=== PATIENT | female | born 1990 | race Caucasian/White ===

== ENCOUNTER 2017-02-28 18:17 | Emergency (ER) | payer MEDICAID ==
[2017-02-28] MEDS ORDERED: HYDROCODONE/APAP 7.5/325MG TABLET PO ONE (18:29)
--- NOTE | 2017-02-28 18:31 | Emergency Department Record ---
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 Patient reports that she takes [place] for her chronic pain symptoms, but is unable to get her prescription filled until tomorrow. Patient denies new injury, fevers, chills, or new pain resulting from her chronic hip region. MD Complaint: Joint pain Onset/Timin -: Days(s) Location: Left Radiation: Proximal Severity scale (1-10): 9 Quality: Aching Consistency: Constant Improves with: Rest Worsens with: Walking, Weight bearing - Related Data Home Medications Medication Instructions Recorded Confirmed Last Taken Hydrocodone/Acetaminophen [[place] 1 each PO QID 02/28/17 02/28/17 2 Days Ago 7.5-325 Tablet] ~02/26/17 Allergies Allergy/AdvReac Type Severity Reaction Status Date / Time amoxicillin [Amoxicillin] Allergy RASH Verified 02/28/17 18:28 cephalexin monohydrate Allergy RASH Verified 02/28/17 18:28 [From Keflex] diphenhydramine HCl Allergy RASH Verified 02/28/17 18:28 [From Benadryl] hydroxyzine HCl [From Atarax] Allergy HIVES Verified 02/28/17 18:28 moxifloxacin HCl Allergy RASH Verified 02/28/17 18:28 [From Avelox] sulfamethoxazole Allergy RASH Verified 02/28/17 18:28 [From Bactrim] trimethoprim [From Bactrim] Allergy RASH Verified 02/28/17 18:28 Travel Screening - Travel/Exposure Within Last 30 Days Have you traveled within the last 30 days?: No - Travel/Exposure Within Last Year Have you traveled outside the [place] in the last year?: No - Additonal Travel Details Have you been exposed to anyone with a communicable illness?: No - Travel Symptoms Symptom Screening: None Review of Systems Constitutional: Denies: Chills, Fever, Malaise, Night sweats Eyes: Denies: Eye discharge, Eye pain ENT: Denies: Congestion, Ear pain, Epistaxis Respiratory: Denies: Cough, Dyspnea Cardiovascular: Denies: Chest pain, Dyspnea on exertion Endocrine: Denies: Fatigue, Heat or cold intolerance Gastrointestinal: Denies: Abdominal pain, Constipation, Nausea, Vomiting Genitourinary: Denies: Incontinence, Retention Musculoskeletal: Reports: Arthralgia. Denies: Back pain, Gout, Joint swelling Skin: Denies: Bruising, Change in color Neurological: Denies: Abnormal gait, Confusion, Headache, Numbness Psychiatric: Denies: Anxiety Hematological/Lymphatic: Denies: Anemia, Blood Clots Past Medical History - SOCIAL HISTORY Smoking Status: Current every day smoker Alcohol Use: None Drug Use: None - RESPIRATORY Hx Respiratory Disorders: Yes Hx Bronchitis: Yes Hx Pneumonia: Yes - CARDIOVASCULAR Hx Cardio Disorders: Yes Hx Irregular Heartbeat: Yes Comment:: Tachycardia - NEURO Hx Neuro Disorders: Yes Hx Headaches: Yes (MIGRAINES) - GI Hx GI Disorders: Yes Hx Irritable Bowel: Yes - Hx Genitourinary Disorders: Yes Hx UTI: Yes Comment:: Polycystic ovarian disease - ENDOCRINE Hx Endocrine Disorders: Yes Hx Thyroid Disease: Yes Comment:: Cyst on Thyroid - MUSCULOSKELETAL Hx Musculoskeletal Disorders: Yes Comment:: Lipomas on back - PSYCH Hx Psych Problems: Yes Hx Anxiety: Yes Hx Depression: Yes Comment:: Bipolar; Borderline personality disorder - HEMATOLOGY/ONCOLOGY Hx Hematology/Oncology Disorders: No Family Medical History Any Significant Family History?: Yes Hx Anxiety: Mother Hx Cancer: Father, Grandparents Hx Depression: Mother Hx Diabetes: Mother Hx Heart Disease: Father, Grandparents Hx HTN: Grandparents Hx Resp Disorders: Grandparents Physical Exam - General General Appearance: Alert, Oriented x3, Cooperative, No acute distress Limitations: No limitations - Head Head exam: Atraumatic, Normocephalic, Normal inspection Head exam detail: negative: Abrasion, Contusion, Hernandez's sign, General tenderness, Hematoma, Laceration - Eye Eye exam: Normal appearance. negative: Conjunctival injection, Periorbital swelling, Periorbital tenderness, Scleral icterus - ENT Ear exam: negative: Auricular hematoma, Auricular trauma Nasal Exam: negative: Active bleeding, Discharge, Dried blood, Foreign body Mouth exam: negative: Drooling, Laceration, Muffled voice, Tongue elevation - Neck Neck exam: Normal inspection. negative: Meningismus, Tenderness - Respiratory Respiratory exam: Normal lung sounds bilaterally. negative: Respiratory distress, Rhonchi, Stridor, Wheezes - Cardiovascular Cardiovascular Exam: Regular rate, Normal rhythm, Normal heart sounds - GI/Abdominal GI/Abdominal exam: Soft. negative: Organomegaly, Pulsatile mass, Rebound, Rigid - Rectal Rectal exam: Deferred - exam: Deferred - Extremities Extremities exam: Tenderness, Other (TTP along the lateral hip c/w chronic pain symptoms). negative: Calf tenderness, Pedal edema - Back Back exam: Denies: CVA tenderness (R), CVA tenderness (L) - Neurological Neurological exam: Alert, Normal gait, Oriented X3 - Psychiatric Psychiatric exam: Normal affect, Normal mood - Skin Skin exam: Normal color. negative: Abrasion Type of lesion: negative: abrasion Course Vital Signs 02/28/17 18:20 Temperature 98.1 F Pulse Rate 78 Respiratory 16 Rate Blood Pressure 127/77 Pulse Ox 98 - Reevaluation(s) Reevaluation #1: 02/28/17 18:34 Patient appears stable for discharge with [place] x 2 with instructions to see her PCP tomorrow for a refill of her pain medication. Disposition Disposition: Discharge Clinical Impression: Chronic right hip pain Disposition: Home, Self-Care Condition: (2) Stable Instructions: Chronic Pain (ED) Additional Instructions: Return to ED if your symptoms worsen or if you have any concerns. [place] as directed. Follow-up with your family doctor tomorrow to refill your pain medication prescription. Forms: Patient Portal Access Time of Disposition: 18:31 Quality - Quality Measures Quality Measures: N/A - Blood Pressure Screening Does Patient Have Any of the Following: No Blood Pressure Classification: Pre-Hypertensive BP Reading Systolic Measurement: 127 Diastolic Measurement: 77 Screening for High Blood Pressure: < Pre-Hypertensive BP, F/U Documented > [ G8950] Pre-Hypertensive Follow-up Interventions: Referral to alternative/primary care provider.
== END 2017-02-28 18:45 | disposition home or self-care (01) ==
LOC: ER 18:17
DX: G89.29 Other chronic pain (principal); M25.552 Pain in left hip
CPT/HCPCS: 99282

== ENCOUNTER 2017-04-09 00:27 | Emergency (ER) | payer MEDICAID ==
--- NOTE | 2017-04-09 00:45 | Emergency Department Record ---
History of Present Illness - General Chief Complaint: Wound, check Stated Complaint: LEFT HIP SURGERY 2WKS AGO, BROWN DISCHARGE Time Seen by Provider: 04/09/17 00:29 Source: Patient Mode of arrival: Wheelchair Limitations: No limitations - History of Present Illness Initial Comments: 26 yo female presents to ED for evaluation of "brown colored discharge" for "at least a week" following a core depression surgery to the left hip 2 weeks ago. Patient reports that original tegaderm following surgery is still in place. Patient reports subjective fevers and chills this evening, denies cough or urinary symptoms. Patient denies erythema around the wound. MD Complaint: Wound re-check Onset/Timin -: Week(s) Returns Today for: Wound recheck Associated Symptoms: Chills, Fever (subjective) - Related Data Allergies Allergy/AdvReac Type Severity Reaction Status Date / Time amoxicillin [Amoxicillin] Allergy RASH Verified 02/28/17 18:28 cephalexin monohydrate Allergy RASH Verified 02/28/17 18:28 [From Keflex] diphenhydramine HCl Allergy RASH Verified 02/28/17 18:28 [From Benadryl] hydroxyzine HCl [From Atarax] Allergy HIVES Verified 02/28/17 18:28 moxifloxacin HCl Allergy RASH Verified 02/28/17 18:28 [From Avelox] sulfamethoxazole Allergy RASH Verified 02/28/17 18:28 [From Bactrim] trimethoprim [From Bactrim] Allergy RASH Verified 02/28/17 18:28 Review of Systems Constitutional: Reports: Chills, Fever. Denies: Malaise, Night sweats Eyes: Denies: Eye discharge, Eye pain ENT: Denies: Congestion, Ear pain, Epistaxis Respiratory: Denies: Cough, Dyspnea Cardiovascular: Denies: Chest pain, Dyspnea on exertion Endocrine: Denies: Fatigue, Heat or cold intolerance Gastrointestinal: Denies: Abdominal pain, Nausea, Vomiting Genitourinary: Denies: Dysuria, Frequency, Hematuria, Incontinence, Retention Musculoskeletal: Denies: Arthralgia, Back pain, Gout, Joint swelling Skin: Denies: Bruising Neurological: Denies: Abnormal gait, Confusion, Headache Psychiatric: Denies: Anxiety Hematological/Lymphatic: Denies: Anemia, Blood Clots Past Medical History - SOCIAL HISTORY Smoking Status: Current every day smoker Drug Use: None - RESPIRATORY Hx Respiratory Disorders: Yes Hx Bronchitis: Yes Hx Pneumonia: Yes - CARDIOVASCULAR Hx Cardio Disorders: Yes Hx Irregular Heartbeat: Yes Comment:: Tachycardia - NEURO Hx Neuro Disorders: Yes Hx Headaches: Yes (MIGRAINES) - GI Hx GI Disorders: Yes Hx Irritable Bowel: Yes - Hx Genitourinary Disorders: Yes Hx UTI: Yes Comment:: Polycystic ovarian disease - ENDOCRINE Hx Endocrine Disorders: Yes Hx Thyroid Disease: Yes Comment:: Cyst on Thyroid - MUSCULOSKELETAL Hx Musculoskeletal Disorders: Yes Comment:: Lipomas on back - PSYCH Hx Psych Problems: Yes Hx Anxiety: Yes Hx Depression: Yes Comment:: Bipolar; Borderline personality disorder - HEMATOLOGY/ONCOLOGY Hx Hematology/Oncology Disorders: No Family Medical History Hx Anxiety: Mother Hx Cancer: Father, Grandparents Hx Depression: Mother Hx Diabetes: Mother Hx Heart Disease: Father, Grandparents Hx HTN: Grandparents Hx Resp Disorders: Grandparents Physical Exam - General General Appearance: Alert, Oriented x3, Cooperative, No acute distress Limitations: No limitations - Head Head exam: Atraumatic, Normocephalic, Normal inspection Head exam detail: negative: Abrasion, Contusion, Hernandez's sign, General tenderness, Hematoma, Laceration - Eye Eye exam: Normal appearance. negative: Conjunctival injection, Periorbital swelling, Periorbital tenderness, Scleral icterus - ENT Ear exam: negative: Auricular hematoma, Auricular trauma Nasal Exam: negative: Active bleeding, Discharge, Dried blood, Foreign body Mouth exam: negative: Drooling, Laceration, Muffled voice, Tongue elevation - Neck Neck exam: Normal inspection. negative: Meningismus, Tenderness - Respiratory Respiratory exam: Normal lung sounds bilaterally. negative: Rales, Respiratory distress, Rhonchi, Stridor - Cardiovascular Cardiovascular Exam: Regular rate, Normal rhythm, Normal heart sounds - GI/Abdominal GI/Abdominal exam: Soft. negative: Rebound, Rigid, Tenderness - Rectal Rectal exam: Deferred - exam: Deferred - Extremities Extremities exam: Other (Small amount of brown-colored discharge from the left hip wound, no erythema present, no induration or fluctuance is present from 1.0 cm incision.). negative: Calf tenderness, Pedal edema, Tenderness - Back Back exam: Denies: CVA tenderness (R), CVA tenderness (L) - Neurological Neurological exam: Alert, Normal gait, Oriented X3 - Psychiatric Psychiatric exam: Normal affect, Normal mood - Skin Skin exam: Normal color. negative: Abrasion Type of lesion: negative: abrasion Course - Reevaluation(s) Reevaluation #1: 04/09/17 01:30 Labs reviewed, ESR 28, CRP 0.91. Labs are otherwise grossly unremarkable for an acute process. No clinical evidence for infection, no erythema or induration are present. Brownish colored discharge is likely the result of broken down blood beneath the wound dressing. Patient was encouraged to call her surgeon tomorrow for evaluation without fail. Medical Decision Making - Lab Data Result diagrams: 04/09/17 00:50 04/09/17 00:50 Disposition Disposition: Discharge Clinical Impression: Wound dehiscence, surgical Qualifiers: Encounter type: initial encounter Qualified Code(s): T81.31XA - Disruption of external operation (surgical) wound, not elsewhere classified, initial encounter Disposition: Home, Self-Care Condition: (2) Stable Instructions: Wound Dehiscence (ED) Additional Instructions: Return to ED if your symptoms worsen or if you have any concerns. Call your surgeon tomorrow for further evaluation of your wound without fail. Forms: Patient Portal Access Time of Disposition: 01:25 Quality - Quality Measures Quality Measures: N/A - Blood Pressure Screening Does Patient Have Any of the Following: No Blood Pressure Classification: Normal BP Reading Systolic Measurement: 105 Diastolic Measurement: 60 Screening for High Blood Pressure: < Normal BP, F/U Not Required > [G8783]
[2017-04-09 00:58] LABS: BASO % 0.2 % (0-6); EOS % 0.3 % (0-6); GRAN % 68.3 % (47-80); HEMATOCRIT 38.6 % (35.0-47.0); HEMOGLOBIN 12.7 gm/dl (11.6-16.0); LYMPH % 25.4 % (16-45); MEAN CELL VOLUME 82.7 fl (81-97); MEAN CORPUSCULAR HEMOGLOBIN 27.2 pg (27-33); MEAN CORPUSCULAR HGB CONC 32.9 g/dl (32-36); MEAN PLATELET VOLUME 10.3 fl (7.4-10.4); MONO % 5.8 % (0-9); PLATELET COUNT 264 K/uL (130-400); RED BLOOD COUNT 4.67 M/uL (3.80-5.40); RED CELL DISTRIBUTION WIDTH 14.8 % (11.5-14.5); WHITE BLOOD COUNT W/O DIFF 10.2 K/uL (4.2-12.2)
[2017-04-09 01:09] LABS: BLOOD UREA NITROGEN 7 mg/dL (6-20); CREATININE 0.8 mg/dL (0.5-0.9); EST GLOMERULAR FILTRATION RATE > 60 mL/min; TOTAL PROTEIN 7.2 g/dL (6.6-8.7)
[2017-04-09 01:11] LABS: GLUCOSE,RANDOM 102 mg/dL (74-109)
[2017-04-09 01:14] LABS: ALB/GLOB RATIO 1.1 (1.1-1.8); ALBUMIN 3.8 g/dL (4.0-5.0); ALKALINE PHOSPHATASE 135 U/L (35-104); ALT/SGPT 22 U/L (<33); AST/SGOT 15 U/L (10.0-35.0); C-REACTIVE PROTEIN 0.91 mg/dL (<0.5)
[2017-04-09] MEDS: KETOROLAC 30 MG/ML VIAL IVP ONE (01:16)
[2017-04-09 01:28] LABS: ERYTHROCYTE SEDIMENTATION RATE 28 mm/hr (0-20)
== END 2017-04-09 01:47 | disposition home or self-care (01) ==
LOC: ER 00:27
DX: T81.31XA Disruption of external operation (surgical) wound, not elsewhere classified, initial encounter (principal)
CPT/HCPCS: 99284 ×2; 96374; 85025; 85651; 86140; 80053; J1885

== ENCOUNTER 2017-04-28 17:49 | Emergency (ER) | payer MEDICAID ==
--- NOTE | 2017-04-28 18:16 | Emergency Department Record ---
History of Present Illness - General Chief Complaint: Overdose Stated Complaint: OD MEDS Time Seen by Provider: 04/28/17 17:59 Source: Patient Mode of Arrival: Ambulatory Limitations: No limitations - History of Present Illness Initial Comments: The patient is here due to overdosing on Baclofen about 24 hours ago. She states she took 18 Baclofen to try to kill herself because her leaving her. She states she then slept most of the last 24 hours. When she woke up today she felt dizzy and had blurred vision. The patient denies overdosing on any other medicines and states she has not taken any of her other medicines today. She is still suicidal and states she has attempted suicide by overdosing in the past. She denies any recent illnesses and also denies any Cp, SOB, AP or back pain. Complaint: Intentional overdose Onset/Timin -: Hour(s) - Ama Coma Scale Eye Response: (4) Open spontaneously Motor Response: (6) Obeys commands Verbal Response: (5) Oriented Ama Total: 15 Substance Ingested: Baclafen Number of Pills Ingested: 18 Time of Ingestion: 18:00 - Detail Intent: Suicide attempt, Want to escape How Overdose Was Discovered: Family/friend present at time Context: Intentional Overdose: Relationship problems Treatments Prior to Arrival: None - Related Data Home Medications Medication Instructions Recorded Confirmed Last Taken Gabapentin [Neurontin] 600 mg PO QPM 04/28/17 04/28/17 1 Day Ago ~04/27/17 Allergies Allergy/AdvReac Type Severity Reaction Status Date / Time amoxicillin [Amoxicillin] Allergy RASH Verified 04/28/17 18:02 cephalexin monohydrate Allergy RASH Verified 04/28/17 18:02 [From Keflex] diphenhydramine HCl Allergy RASH Verified 04/28/17 18:02 [From Benadryl] hydroxyzine HCl [From Atarax] Allergy HIVES Verified 04/28/17 18:02 moxifloxacin HCl Allergy RASH Verified 04/28/17 18:02 [From Avelox] sulfamethoxazole Allergy RASH Verified 04/28/17 18:02 [From Bactrim] trimethoprim [From Bactrim] Allergy RASH Verified 04/28/17 18:02 Travel Screening - Travel/Exposure Within Last 30 Days Have you traveled within the last 30 days?: No - Travel/Exposure Within Last Year Have you traveled outside the [place] in the last year?: No - Additonal Travel Details Have you been exposed to anyone with a communicable illness?: No - Travel Symptoms Symptom Screening: None Review of Systems Constitutional: Denies: Chills, Fever Eyes: Denies: Eye discharge ENT: Denies: Congestion Respiratory: Denies: Cough, Dyspnea Cardiovascular: Denies: Arrhythmia, Chest pain Past Medical History - SOCIAL HISTORY Smoking Status: Current every day smoker Alcohol Use: None Drug Use: None - RESPIRATORY Hx Respiratory Disorders: Yes Hx Bronchitis: Yes Hx Pneumonia: Yes - CARDIOVASCULAR Hx Cardio Disorders: Yes Hx Irregular Heartbeat: Yes Comment:: Tachycardia - NEURO Hx Neuro Disorders: Yes Hx Headaches: Yes (MIGRAINES) - GI Hx GI Disorders: Yes Hx Irritable Bowel: Yes - Hx Genitourinary Disorders: Yes Hx UTI: Yes Comment:: Polycystic ovarian disease - ENDOCRINE Hx Endocrine Disorders: Yes Hx Thyroid Disease: Yes Comment:: Cyst on Thyroid - MUSCULOSKELETAL Hx Musculoskeletal Disorders: Yes Comment:: Lipomas on back - PSYCH Hx Psych Problems: Yes Hx Anxiety: Yes Hx Depression: Yes Comment:: Bipolar; Borderline personality disorder - HEMATOLOGY/ONCOLOGY Hx Hematology/Oncology Disorders: No Family Medical History Any Significant Family History?: Yes Hx Anxiety: Mother Hx Cancer: Father, Grandparents Hx Depression: Mother Hx Diabetes: Mother Hx Heart Disease: Father, Grandparents Hx HTN: Grandparents Hx Resp Disorders: Grandparents Physical Exam - General General Appearance: Alert, Oriented x3, Cooperative, No acute distress - Head Head exam: Atraumatic, Normocephalic, Normal inspection - Eye Eye exam: Normal appearance, PERRL, EOMI - ENT Throat exam: Normal inspection. negative: Tonsillar erythema, Tonsillar exudate - Neck Neck exam: Normal inspection, Full ROM. negative: Tenderness - Respiratory Respiratory exam: Normal lung sounds bilaterally. negative: Respiratory distress - Cardiovascular Cardiovascular Exam: Regular rate, Normal rhythm, Normal heart sounds. negative : Diastolic murmur, Irregular rhythm, Systolic murmur, Tachycardia - GI/Abdominal GI/Abdominal exam: Soft, Normal bowel sounds. negative: Distended, Rebound, Rigid, Tenderness - Extremities Extremities exam: Normal inspection, Full ROM, Normal capillary refill. negative: Tenderness - Neurological Neurological exam: Alert, Altered, Oriented X3. negative: Motor sensory deficit - Psychiatric Psychiatric exam: negative: Anxious, Depressed, Flat affect - Skin Skin exam: negative: Rash Course Vital Signs 04/28/17 17:51 Temperature 98.4 F Pulse Rate 74 Respiratory 16 Rate Blood Pressure 136/72 Pulse Ox 94 L - Reevaluation(s) Reevaluation #1: The patient is resting comfortably. She denies any problems except for her chronic L hip pain. There is no reported SOB, AP, NARVAEZ, or CP. 04/28/17 18:43 Reevaluation #2: The patient's care will be turned over to Dr. Bedoya at 19:00 due to shift change. 04/28/17 18:51 Medical Decision Making - Data Complexity MDM Data: EKG Ordered and/or Reviewed - Lab Data Result diagrams: 04/28/17 18:13 04/28/17 18:13 - EKG Data -: EKG Interpreted by Me EKG: No Acute Changes (RSR' pattern. No acute changes.) Disposition Forms: Patient Portal Access Quality - Quality Measures Quality Measures: N/A - Blood Pressure Screening View Details: Yes Does Patient Have Any of the Following: No Blood Pressure Classification: Pre-Hypertensive BP Reading Systolic Measurement: 136 Diastolic Measurement: 72 Screening for High Blood Pressure: < Pre-Hypertensive BP, F/U Documented > [ G8950] Pre-Hypertensive Follow-up Interventions: Referral to alternative/primary care provider.
[2017-04-28] MEDS ORDERED: 0.9 % SODIUM CHLORIDE 1,000 ML BAG IV ONE (18:18)
[2017-04-28 18:33] LABS: BASO % 0.1 % (0-6); EOS % 0.1 % (0-6); HEMATOCRIT 43.8 % (35.0-47.0); HEMOGLOBIN 14.3 gm/dl (11.6-16.0); LYMPH % 9.7 % (16-45); MEAN CELL VOLUME 82.5 fl (81-97); MEAN CORPUSCULAR HEMOGLOBIN 26.9 pg (27-33); MEAN CORPUSCULAR HGB CONC 32.6 g/dl (32-36); MEAN PLATELET VOLUME 10.5 fl (7.4-10.4); MONO % 4.5 % (0-9); PLATELET COUNT 299 K/uL (130-400); RED BLOOD COUNT 5.31 M/uL (3.80-5.40); RED CELL DISTRIBUTION WIDTH 14.6 % (11.5-14.5); WHITE BLOOD COUNT W/O DIFF 16.6 K/uL (4.2-12.2)
[2017-04-28 18:42] LABS: URINE APPEARANCE CLEAR; URINE BILIRUBIN NEGATIVE (NEGATIVE); URINE BLOOD NEGATIVE (NEGATIVE); URINE COLOR YELLOW; URINE GLUCOSE (UA) NEGATIVE (NEGATIVE); URINE KETONE NEGATIVE (NEGATIVE); URINE LEUKOCYTE ESTERASE NEGATIVE (NEGATIVE); URINE NITRITE NEGATIVE (NEGATIVE); URINE PROTEIN NEGATIVE (NEGATIVE); URINE UROBILINOGEN 0.2 E.U./dL (0.20 - 1.00)
[2017-04-28 18:43] LABS: ACETAMINOPHEN < 5.0 ug/mL (10.0-30.0)
[2017-04-28 18:44] LABS: SALICYLATE < 0.3 mg/dL (2.8-20)
[2017-04-28 18:48] LABS: HCG,QUALITATIVE URINE NEGATIVE (NEGATIVE)
[2017-04-28 18:49] LABS: AMPHETAMINE SCREEN URINE NOT DETECTED; BARBITURATE SCREEN URINE NOT DETECTED; BENZODIAZEPINE SCREEN URINE NOT DETECTED; COCAINE SCREEN URINE NOT DETECTED; METHADONE SCREEN URINE NOT DETECTED; METHAMPHETAMINE SCREEN NOT DETECTED; OPIATE SCREEN URINE DETECTED; OXYCODONE SCREEN URINE NOT DETECTED; PHENCYCLIDINE SCREEN URINE NOT DETECTED; PROPOXYPHENE SCREEN URINE NOT DETECTED; THC SCREEN URINE NOT DETECTED; TRICYCLIC ANTIDEPRESSANT SCRN DETECTED
[2017-04-28 18:50] LABS: BLOOD UREA NITROGEN 9 mg/dL (6-20); CREATININE 0.9 mg/dL (0.5-0.9); EST GLOMERULAR FILTRATION RATE > 60 mL/min
[2017-04-28] MEDS ORDERED: KETOROLAC 30 MG/ML VIAL IVP ONE (18:50)
[2017-04-28 18:55] LABS: GLUCOSE,RANDOM 131 mg/dL (74-109)
[2017-04-28 18:56] LABS: ALB/GLOB RATIO 1.2 (1.1-1.8); ALBUMIN 4.6 g/dL (4.0-5.0); ALKALINE PHOSPHATASE 142 U/L (35-104); ALT/SGPT 27 U/L (<33); AST/SGOT 19 U/L (10.0-35.0); TOTAL PROTEIN 8.5 g/dL (6.6-8.7)
--- NOTE | 2017-04-28 20:07 | Emergency Department Record ---
History of Present Illness - General Chief Complaint: Overdose Stated Complaint: OD MEDS Time Seen by Provider: 04/28/17 17:59 Source: Patient Mode of Arrival: Ambulatory Limitations: No limitations - History of Present Illness Onset/Timin -: Hour(s) - Ama Coma Scale Eye Response: (4) Open spontaneously Motor Response: (6) Obeys commands Verbal Response: (5) Oriented [place] Total: 15 Substance Ingested: Baclafen Number of Pills Ingested: 18 Time of Ingestion: 18:00 - Detail Intent: Suicide attempt, Want to escape How Overdose Was Discovered: Family/friend present at time Context: Intentional Overdose: Relationship problems Treatments Prior to Arrival: None - Related Data Home Medications Medication Instructions Recorded Confirmed Last Taken Gabapentin [Neurontin] 600 mg PO QPM 04/28/17 04/28/17 1 Day Ago ~04/27/17 Allergies Allergy/AdvReac Type Severity Reaction Status Date / Time amoxicillin [Amoxicillin] Allergy RASH Verified 04/28/17 18:02 cephalexin monohydrate Allergy RASH Verified 04/28/17 18:02 [From Keflex] diphenhydramine HCl Allergy RASH Verified 04/28/17 18:02 [From Benadryl] hydroxyzine HCl [From Atarax] Allergy HIVES Verified 04/28/17 18:02 moxifloxacin HCl Allergy RASH Verified 04/28/17 18:02 [From Avelox] sulfamethoxazole Allergy RASH Verified 04/28/17 18:02 [From Bactrim] trimethoprim [From Bactrim] Allergy RASH Verified 04/28/17 18:02 Travel Screening - Travel/Exposure Within Last 30 Days Have you traveled within the last 30 days?: No - Travel/Exposure Within Last Year Have you traveled outside the [place] in the last year?: No - Additonal Travel Details Have you been exposed to anyone with a communicable illness?: No - Travel Symptoms Symptom Screening: None Review of Systems Constitutional: Denies: Chills, Fever Eyes: Denies: Eye discharge ENT: Denies: Congestion Respiratory: Denies: Cough, Dyspnea Cardiovascular: Denies: Arrhythmia, Chest pain Past Medical History - SOCIAL HISTORY Smoking Status: Current every day smoker Alcohol Use: None Drug Use: None - RESPIRATORY Hx Respiratory Disorders: Yes Hx Bronchitis: Yes Hx Pneumonia: Yes - CARDIOVASCULAR Hx Cardio Disorders: Yes Hx Irregular Heartbeat: Yes Comment:: Tachycardia - NEURO Hx Neuro Disorders: Yes Hx Headaches: Yes (MIGRAINES) - GI Hx GI Disorders: Yes Hx Irritable Bowel: Yes - Hx Genitourinary Disorders: Yes Hx UTI: Yes Comment:: Polycystic ovarian disease - ENDOCRINE Hx Endocrine Disorders: Yes Hx Thyroid Disease: Yes Comment:: Cyst on Thyroid - MUSCULOSKELETAL Hx Musculoskeletal Disorders: Yes Comment:: Lipomas on back - PSYCH Hx Psych Problems: Yes Hx Anxiety: Yes Hx Depression: Yes Comment:: Bipolar; Borderline personality disorder - HEMATOLOGY/ONCOLOGY Hx Hematology/Oncology Disorders: No Family Medical History Any Significant Family History?: Yes Hx Anxiety: Mother Hx Cancer: Father, Grandparents Hx Depression: Mother Hx Diabetes: Mother Hx Heart Disease: Father, Grandparents Hx HTN: Grandparents Hx Resp Disorders: Grandparents Physical Exam - General Limitations: No limitations Course Vital Signs 04/28/17 17:51 Temperature 98.4 F Pulse Rate 74 Respiratory 16 Rate Blood Pressure 136/72 Pulse Ox 94 L - Reevaluation(s) Reevaluation #1: 04/28/17 20:04 Assumed care from previous provider, all records have been sent/reviewed by [facility] , and the patient has been accepted for transfer for psychiatric evaluation. Patient understands the mental health clearance process as described by the previous provider, and is stable for transfer at this time. Medical Decision Making - Lab Data Result diagrams: 04/28/17 18:13 04/28/17 18:13 Lab Results 04/28/17 04/28/17 04/28/17 Range/Units 18:13 18:13 18:13 WBC 16.6 H (4.2-12.2) K/uL RBC 5.31 (3.80-5.40) M/uL Hgb 14.3 (11.6-16.0) gm/dl Hct 43.8 (35.0-47.0) % MCV 82.5 (81-97) fl MCH 26.9 L (27-33) pg MCHC 32.6 (32-36) g/dl RDW 14.6 H (11.5-14.5) % Plt Count 299 (130-400) K/uL MPV 10.5 H (7.4-10.4) fl Neutrophils % 85.0 H (47-80) % Band Neutrophils % 0.0 (0-5) % Lymphocytes % 9.7 L (16-45) % Monocytes % 4.5 (0-9) % Eosinophils % 0.1 (0-6) % Basophils % 0.1 (0-6) % Lymphocytes 10.0 L (16-45) % Monocytes 5.0 (0-9) % Basophils 0.0 (0-6) % Eosinophil Count 0.0 (0-6) % Sodium 145 (136-145) mmol/L Potassium 3.7 (3.4-4.5) mmol/L Chloride 102 (98-107) mmol/L Carbon Dioxide 25.0 (22-29) mmol/L Anion Gap 18.0 H (7-16) BUN 9 (6-20) mg/dL Creatinine 0.9 (0.5-0.9) mg/dL Estimated GFR > 60 mL/min Random Glucose 131 H (74-109) mg/dL Calcium 9.9 (8.6-10.0) mg/dL Total Bilirubin 0.40 (0.2-1.0) mg/dL AST 19 (10.0-35.0) U/L ALT 27 (<33) U/L Alkaline Phosphatase 142 H (35-104) U/L Total Protein 8.5 (6.6-8.7) g/dL Albumin 4.6 (4.0-5.0) g/dL Globulin 3.9 (1.4-4.8) gm/dL Albumin/Globulin Ratio 1.2 (1.1-1.8) Urine Color Urine Appearance Urine pH (5.0-8.0) Ur Specific [place] (1.002-1.030) Urine Protein (NEGATIVE) Urine Glucose (UA) (NEGATIVE) Urine Ketones (NEGATIVE) Urine Blood (NEGATIVE) Urine Nitrite (NEGATIVE) Urine Bilirubin (NEGATIVE) Urine Urobilinogen (0.20 - 1.00) E.U./dL Ur Leukocyte Esterase (NEGATIVE) Urine HCG, Qual (NEGATIVE) Salicylates < 0.3 L (2.8-20) mg/dL Urine Opiates Screen Ur Oxycodone Screen Urine Methadone Screen Ur Propoxyphene Screen Acetaminophen < 5.0 L (10.0-30.0) ug/mL Ur Barbituates Screen Ur Tricyclics Screen Ur Phencyclidine Scrn Ur Amphetamine Screen U Methamphetamines Scrn U Benzodiazepines Scrn Urine Cocaine Screen Urine Cannabis Screen Ethyl Alcohol (0-0.010) g/dL 04/28/17 04/28/17 04/28/17 Range/Units 18:13 18:30 18:30 WBC (4.2-12.2) K/uL RBC (3.80-5.40) M/uL Hgb (11.6-16.0) gm/dl Hct (35.0-47.0) % MCV (81-97) fl MCH (27-33) pg MCHC (32-36) g/dl RDW (11.5-14.5) % Plt Count (130-400) K/uL MPV (7.4-10.4) fl Neutrophils % (47-80) % Band Neutrophils % (0-5) % Lymphocytes % (16-45) % Monocytes % (0-9) % Eosinophils % (0-6) % Basophils % (0-6) % Lymphocytes (16-45) % Monocytes (0-9) % Basophils (0-6) % Eosinophil Count (0-6) % Sodium (136-145) mmol/L Potassium (3.4-4.5) mmol/L Chloride (98-107) mmol/L Carbon Dioxide (22-29) mmol/L Anion Gap (7-16) BUN (6-20) mg/dL Creatinine (0.5-0.9) mg/dL Estimated GFR mL/min Random Glucose (74-109) mg/dL Calcium (8.6-10.0) mg/dL Total Bilirubin (0.2-1.0) mg/dL AST (10.0-35.0) U/L ALT (<33) U/L Alkaline Phosphatase (35-104) U/L Total Protein (6.6-8.7) g/dL Albumin (4.0-5.0) g/dL Globulin (1.4-4.8) gm/dL Albumin/Globulin Ratio (1.1-1.8) Urine Color Yellow Urine Appearance Clear Urine pH 6.5 (5.0-8.0) Ur Specific [place] 1.025 (1.002-1.030) Urine Protein Negative (NEGATIVE) Urine Glucose (UA) Negative (NEGATIVE) Urine Ketones Negative (NEGATIVE) Urine Blood Negative (NEGATIVE) Urine Nitrite Negative (NEGATIVE) Urine Bilirubin Negative (NEGATIVE) Urine Urobilinogen 0.2 (0.20 - 1.00) E.U./dL Ur Leukocyte Esterase Negative (NEGATIVE) Urine HCG, Qual Negative (NEGATIVE) Salicylates (2.8-20) mg/dL Urine Opiates Screen Detected Ur Oxycodone Screen Not detected Urine Methadone Screen Not detected Ur Propoxyphene Screen Not detected Acetaminophen (10.0-30.0) ug/mL Ur Barbituates Screen Not detected Ur Tricyclics Screen Detected Ur Phencyclidine Scrn Not detected Ur Amphetamine Screen Not detected U Methamphetamines Scrn Not detected U Benzodiazepines Scrn Not detected Urine Cocaine Screen Not detected Urine Cannabis Screen Not detected Ethyl Alcohol 0.000 (0-0.010) g/dL Disposition Disposition: Transfer Clinical Impression: Intentional overdose of drug in tablet form, Suicidal ideation Disposition: Psychiatric Hospital Transfer To: [facility] Reason For Transfer: Psychiatric evaluation Accepting Physician: Jin Time Discussed w/Accepting Physician: 20:07 Condition: (2) Stable Forms: Patient Portal Access Time of Disposition: 20:06 Quality - Quality Measures Quality Measures: N/A - Blood Pressure Screening Does Patient Have Any of the Following: No Blood Pressure Classification: Pre-Hypertensive BP Reading Systolic Measurement: 136 Diastolic Measurement: 72 Screening for High Blood Pressure: < Pre-Hypertensive BP, F/U Documented > [ G8950] Pre-Hypertensive Follow-up Interventions: Referral to alternative/primary care provider.
== END 2017-04-28 21:13 ==
LOC: ER 17:49
DX: T42.8X Poisoning by, adverse effect of and underdosing of antiparkinsonism drugs and other central muscle-tone depressants (principal); R42 Dizziness and giddiness; H53.8 Other visual disturbances; M25.552 Pain in left hip; G89.29 Other chronic pain; F32.9 Major depressive disorder, single episode, unspecified; F17.210 Nicotine dependence, cigarettes, uncomplicated
CPT/HCPCS: 99285 ×2; 96374; 80053; 81003; 81025; 80305; 85027; 93005; 93010; G0480 ×3; J1885; 80320; 80329; J7030

== ENCOUNTER 2017-05-19 14:52 | Emergency (ER) | payer MEDICAID ==
[2017-05-19] MEDS ORDERED: HYDROCODONE/APAP 5/325MG TABLET PO ONE (17:42)
--- NOTE | 2017-05-19 18:16 | Emergency Department Record ---
History of Present Illness - General Chief complaint: Lower Extremity Pain Stated complaint: LEFT HIP PAIN Time Seen by Provider: 05/19/17 17:33 Source: Patient Mode of Arrival: Ambulatory Limitations: No limitations - History of Present Illness Initial comments: pt had surgery on l hip in march, a core decompression. she has run out of pain meds and her pain is increased Complaint: Extremity pain Onset/Timin -: Days(s) Location: Left, Thigh, Other History of Same: Yes Radiation: None Consistency: Constant - Related Data Home Medications Medication Instructions Recorded Confirmed Last Taken Ranitidine HCl [Zantac] 150 mg PO BID 05/19/17 05/19/17 05/19/17 Previous Rx's Medication Instructions Recorded Hydrocodone/Acetaminophen [[place] 1 each PO Q6HR #5 tablet 05/19/17 5-325 Tablet] Allergies Allergy/AdvReac Type Severity Reaction Status Date / Time amoxicillin [Amoxicillin] Allergy RASH Verified 05/19/17 16:50 cephalexin monohydrate Allergy RASH Verified 05/19/17 16:50 [From Keflex] diphenhydramine HCl Allergy RASH Verified 05/19/17 16:50 [From Benadryl] hydroxyzine HCl [From Atarax] Allergy HIVES Verified 05/19/17 16:50 moxifloxacin HCl Allergy RASH Verified 05/19/17 16:50 [From Avelox] sulfamethoxazole Allergy RASH Verified 05/19/17 16:50 [From Bactrim] trimethoprim [From Bactrim] Allergy RASH Verified 05/19/17 16:50 Travel Screening - Travel/Exposure Within Last 30 Days Have you traveled within the last 30 days?: No - Travel/Exposure Within Last Year Have you traveled outside the [place] in the last year?: No - Additonal Travel Details Have you been exposed to anyone with a communicable illness?: No Review of Systems Reviewed: No additional complaints except as noted below Constitutional: Reports: As per HPI. Denies: Chills, Fever, Malaise, Night sweats, Weakness, Weight change Eyes: Reports: As per HPI. Denies: Eye discharge, Eye pain, Photophobia, Vision change ENT: Reports: As per HPI. Denies: Congestion, Dental pain, Ear pain, Epistaxis , Hearing loss, Throat pain Respiratory: Reports: As per HPI. Denies: Cough, Dyspnea, Hemoptysis, Stridor, Wheezes Cardiovascular: Reports: As per HPI. Denies: Arrhythmia, Chest pain, Dyspnea on exertion, Edema, Murmurs, Orthopnea, Palpitations, Paroxysmal nocturnal dyspnea, Rheumatic Fever, Syncope Endocrine: Reports: As per HPI. Denies: Fatigue, Heat or cold intolerance, Polydipsia, Polyuria Gastrointestinal: Reports: As per HPI. Denies: Abdominal pain, Constipation, Diarrhea, Hematemesis, Hematochezia, Melena, Nausea, Vomiting Genitourinary: Reports: As per HPI. Denies: Abnormal menses, Discharge, Dyspareunia, Dysuria, Frequency, Hematuria, Incontinence, Retention, Urgency Musculoskeletal: Reports: As per HPI. Denies: Arthralgia, Back pain, Gout, Joint swelling, Myalgia, Neck pain Skin: Reports: As per HPI. Denies: Bruising, Change in color, Change in hair/ nails, Lesions, Pruritus, Rash Neurological: Reports: As per HPI. Denies: Abnormal gait, Confusion, Headache, Numbness, Paresthesias, Seizure, Tingling, Tremors, Vertigo, Weakness Psychiatric: Reports: As per HPI. Denies: Anxiety, Auditory hallucinations, Depression, Homicidal thoughts, Suicidal thoughts, Visual hallucinations Hematological/Lymphatic: Reports: As per HPI. Denies: Anemia, Blood Clots, Easy bleeding, Easy bruising, Swollen glands Past Medical History - SOCIAL HISTORY Smoking Status: Current every day smoker Alcohol Use: Rare Drug Use: None - RESPIRATORY Hx Respiratory Disorders: Yes Hx Bronchitis: Yes Hx Pneumonia: Yes - CARDIOVASCULAR Hx Cardio Disorders: Yes Hx Irregular Heartbeat: Yes Comment:: Tachycardia - NEURO Hx Neuro Disorders: Yes Hx Headaches: Yes (MIGRAINES) - GI Hx GI Disorders: Yes Hx Irritable Bowel: Yes - Hx Genitourinary Disorders: Yes Hx UTI: Yes Comment:: Polycystic ovarian disease - ENDOCRINE Hx Endocrine Disorders: Yes Hx Thyroid Disease: Yes Comment:: Cyst on Thyroid - MUSCULOSKELETAL Hx Musculoskeletal Disorders: Yes Comment:: Lipomas on back - PSYCH Hx Psych Problems: Yes Hx Anxiety: Yes Hx Depression: Yes Comment:: Bipolar; Borderline personality disorder - HEMATOLOGY/ONCOLOGY Hx Hematology/Oncology Disorders: No Family Medical History Any Significant Family History?: No Hx Anxiety: Mother Hx Cancer: Father, Grandparents Hx Depression: Mother Hx Diabetes: Mother Hx Heart Disease: Father, Grandparents Hx HTN: Grandparents Hx Resp Disorders: Grandparents Physical Exam - General General Appearance: Alert, Oriented x3, Cooperative, Mild distress - Head Head exam: Normal inspection - Eye Eye exam: Normal appearance, PERRL, EOMI Pupils: Normal accommodation - ENT ENT exam: Normal exam, Mucous membranes moist, Normal external ear exam, Normal orophraynx Ear exam: Normal external inspection. negative: External canal tenderness Nasal Exam: Normal inspection. negative: Discharge, Sinus tenderness Mouth exam: Normal external inspection, Tongue normal Teeth exam: Normal inspection. negative: Dental caries Throat exam: Normal inspection. negative: Tonsillar erythema, Tonsillar exudate - Neck Neck exam: Normal inspection, Full ROM. negative: Tenderness - Respiratory Respiratory exam: Normal lung sounds bilaterally. negative: Respiratory distress - Cardiovascular Cardiovascular Exam: Regular rate, Normal rhythm, Normal heart sounds - GI/Abdominal GI/Abdominal exam: Soft, Normal bowel sounds. negative: Tenderness - Rectal Rectal exam: Deferred - exam: Deferred - Extremities Extremities exam: Normal inspection, Full ROM, Normal capillary refill, Tenderness - Back Back exam: Reports: Normal inspection, Full ROM. Denies: Muscle spasm, Rash noted, Tenderness - Neurological Neurological exam: Alert, CN II-XII intact, Normal gait, Oriented X3 - Psychiatric Psychiatric exam: Normal affect, Normal mood - Skin Skin exam: Dry, Intact, Normal color, Warm Course Vital Signs 05/19/17 16:42 Temperature 97.8 F Pulse Rate 88 Respiratory 16 Rate Blood Pressure 116/73 Pulse Ox 97 Disposition Disposition: Discharge Clinical Impression: Postoperative pain, acute, hip Qualifiers: Laterality: left Qualified Code(s): G89.18 - Other acute postprocedural pain; M25.552 - Pain in left hip; M25.552 - Pain in left hip Disposition: Home, Self-Care Condition: (1) Good Additional Instructions: follow up with surgeon tomorrow. return sooner if worse. Prescriptions: Hydrocodone/Acetaminophen [[place] 5-325 Tablet] 1 each PO Q6HR #5 tablet Forms: Patient Portal Access Quality - Quality Measures Quality Measures: N/A - Blood Pressure Screening Does Patient Have Any of the Following: No Blood Pressure Classification: Normal BP Reading Systolic Measurement: 116 Diastolic Measurement: 73 Screening for High Blood Pressure: < Normal BP, F/U Not Required > [G8783]
--- NOTE | 2017-05-20 09:11 | RADIOLOGY REPORT ---
EXAM: LEFT HIP WITH AP PELVIS HISTORY: INCREASED PAIN LEFT HIP. CORE DECOMPRESSION 03/24/17. TECHNIQUE: AP view of the pelvis and two views of the left hp were obtained. Comparison: 07/24/13. FINDINGS: Lucency within the left hip consistent with history of core decompression. Mixed lytic and sclerotic change suggesting underlying osteonecrosis. No evidence for femoral head collapse. No clearly acute osseous abnormality. The soft tissues are unremarkable. An IUD is noted. Please note questionable changes of osteonecrosis/avascular necrosis right femoral head as well. IMPRESSION: SURGICAL ALTERATION LEFT HIP CONSISTENT WITH HISTORY OF CORE DECOMPRESSION. 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 NO EVIDENCE FOR FEMORAL HEAD COLLAPSE. JOB NUMBER: [id number] MTDD
== END 2017-05-19 18:45 | disposition home or self-care (01) ==
LOC: ER 14:52
DX: G89.18 Other acute postprocedural pain (principal); M25.552 Pain in left hip; F17.210 Nicotine dependence, cigarettes, uncomplicated
CPT/HCPCS: 99283

== ENCOUNTER 2017-09-10 12:32 | Emergency (ER) | payer MEDICAID ==
--- NOTE | 2017-09-10 13:18 | Emergency Department Record ---
History of Present Illness - General Chief complaint: Vaginal discharge Stated complaint: YEAST INFECTION Time Seen by Provider: 09/10/17 13:00 Source: Patient Mode of Arrival: Ambulatory - History of Present Illness Initial comments: brown vaginal discharge and she thinks she has a vaginal yeast infection. No recent antibiotics and no abdominal pain. Patient denies and she has an IUD. Sex three days ago. MD Complaint: Vaginal discharge Onset/Timin -: Days(s) Severity: Mild Severity scale (1-10): 1 LMP Date: 08/18/17 Gestational Age (wks) based on LMP: 3 Associated Symptoms: Vaginal discharge - Related Data Previous Rx's Medication Instructions Recorded Fluconazole [Diflucan] 150 mg PO ONCE #1 tab 09/10/17 Metronidazole [Flagyl] 500 mg PO BID #14 tablet 09/10/17 Allergies Allergy/AdvReac Type Severity Reaction Status Date / Time amoxicillin [Amoxicillin] Allergy RASH Verified 09/10/17 12:54 cephalexin monohydrate Allergy RASH Verified 09/10/17 12:54 [From Keflex] diphenhydramine HCl Allergy RASH Verified 09/10/17 12:54 [From Benadryl] hydroxyzine HCl [From Atarax] Allergy HIVES Verified 09/10/17 12:54 moxifloxacin HCl Allergy RASH Verified 09/10/17 12:54 [From Avelox] sulfamethoxazole Allergy RASH Verified 09/10/17 12:54 [From Bactrim] trimethoprim [From Bactrim] Allergy RASH Verified 09/10/17 12:54 Travel Screening - Travel/Exposure Within Last 30 Days Have you traveled within the last 30 days?: No - Travel/Exposure Within Last Year Have you traveled outside the [place] in the last year?: No - Additonal Travel Details Have you been exposed to anyone with a communicable illness?: No - Travel Symptoms Symptom Screening: None Review of Systems Reviewed: No additional complaints except as noted below Constitutional: Reports: As per HPI. Denies: Chills, Fever, Malaise, Night sweats, Weakness, Weight change Eyes: Reports: As per HPI. Denies: Eye discharge, Eye pain, Photophobia, Vision change ENT: Reports: As per HPI. Denies: Congestion, Dental pain, Ear pain, Epistaxis , Hearing loss, Throat pain Respiratory: Reports: As per HPI. Denies: Cough, Dyspnea, Hemoptysis, Stridor, Wheezes Cardiovascular: Reports: As per HPI. Denies: Arrhythmia, Chest pain, Dyspnea on exertion, Edema, Murmurs, Orthopnea, Palpitations, Paroxysmal nocturnal dyspnea, Rheumatic Fever, Syncope Endocrine: Reports: As per HPI. Denies: Fatigue, Heat or cold intolerance, Polydipsia, Polyuria Gastrointestinal: Reports: As per HPI. Denies: Abdominal pain, Constipation, Diarrhea, Hematemesis, Hematochezia, Melena, Nausea, Vomiting Genitourinary: Reports: As per HPI, Discharge. Denies: Abnormal menses, Dyspareunia, Dysuria, Frequency, Hematuria, Incontinence, Retention, Urgency Musculoskeletal: Reports: As per HPI. Denies: Arthralgia, Back pain, Gout, Joint swelling, Myalgia, Neck pain Skin: Reports: As per HPI. Denies: Bruising, Change in color, Change in hair/ nails, Lesions, Pruritus, Rash Neurological: Reports: As per HPI. Denies: Abnormal gait, Confusion, Headache, Numbness, Paresthesias, Seizure, Tingling, Tremors, Vertigo, Weakness Psychiatric: Reports: As per HPI. Denies: Anxiety, Auditory hallucinations, Depression, Homicidal thoughts, Suicidal thoughts, Visual hallucinations Hematological/Lymphatic: Reports: As per HPI. Denies: Anemia, Blood Clots, Easy bleeding, Easy bruising, Swollen glands Past Medical History - SOCIAL HISTORY Smoking Status: Current every day smoker Alcohol Use: None Drug Use: None - RESPIRATORY Hx Respiratory Disorders: Yes Hx Bronchitis: Yes Hx Pneumonia: Yes - CARDIOVASCULAR Hx Cardio Disorders: Yes Hx Irregular Heartbeat: Yes Comment:: Tachycardia - NEURO Hx Neuro Disorders: Yes Hx Headaches: Yes (MIGRAINES) - GI Hx GI Disorders: Yes Hx Irritable Bowel: Yes - Hx Genitourinary Disorders: Yes Hx UTI: Yes Comment:: Polycystic ovarian disease - ENDOCRINE Hx Endocrine Disorders: Yes Hx Thyroid Disease: Yes Comment:: Cyst on Thyroid - MUSCULOSKELETAL Hx Musculoskeletal Disorders: Yes Comment:: Lipomas on back - PSYCH Hx Psych Problems: Yes Hx Anxiety: Yes Hx Depression: Yes Comment:: Bipolar; Borderline personality disorder - HEMATOLOGY/ONCOLOGY Hx Hematology/Oncology Disorders: No Family Medical History Any Significant Family History?: Yes Hx Anxiety: Mother Hx Cancer: Father, Grandparents Hx Depression: Mother Hx Diabetes: Mother Hx Heart Disease: Father, Grandparents Hx HTN: Grandparents Hx Resp Disorders: Grandparents Physical Exam - General General Appearance: Alert, Oriented x3, Cooperative, No acute distress - Head Head exam: Normal inspection - Eye Eye exam: Normal appearance, PERRL Pupils: Normal accommodation - ENT ENT exam: Normal exam, Mucous membranes moist, Normal external ear exam, Normal orophraynx, TM's normal bilaterally Ear exam: Normal external inspection. negative: External canal tenderness Nasal Exam: Normal inspection. negative: Discharge, Sinus tenderness Mouth exam: Normal external inspection, Tongue normal Teeth exam: Normal inspection. negative: Dental caries Throat exam: Normal inspection. negative: Tonsillar erythema, Tonsillar exudate - Neck Neck exam: Normal inspection, Full ROM. negative: Tenderness - Respiratory Respiratory exam: Normal lung sounds bilaterally. negative: Respiratory distress - Cardiovascular Cardiovascular Exam: Regular rate, Normal rhythm, Normal heart sounds - GI/Abdominal GI/Abdominal exam: Soft, Normal bowel sounds. negative: Tenderness - Rectal Rectal exam: Deferred - exam: Cervical discharge (brown discharge with odor), Normal bimanual exam, Normal external exam, Vaginal discharge. negative: Abnormal external exam, Adnexal mass (L), Adnexal mass (R), Adnexal tenderness (L), Adnexal tenderness ( R), cervical motion tenderness, Enlarged uterus, Normal speculum exam - Extremities Extremities exam: Normal inspection, Full ROM, Normal capillary refill. negative: Tenderness - Back Back exam: Reports: Normal inspection, Full ROM. Denies: Muscle spasm, Rash noted, Tenderness - Neurological Neurological exam: Alert, Normal gait, Oriented X3, Reflexes normal - Psychiatric Psychiatric exam: Normal affect, Normal mood - Skin Skin exam: Dry, Intact, Normal color, Warm Course Vital Signs 09/10/17 12:49 Temperature 98.2 F Pulse Rate 112 H Respiratory 20 Rate Blood Pressure 133/77 Pulse Ox 96 Disposition Clinical Impression: Bacterial vaginosis Disposition: Home, Self-Care Condition: (1) Good Instructions: Vaginitis (ED) Additional Instructions: follow up with family in 5 days mg twice a day for 7 days Prescriptions: Fluconazole [Diflucan] 150 mg PO ONCE #1 tab Metronidazole [Flagyl] 500 mg PO BID #14 tablet Forms: Patient Portal Access Time of Disposition: 14:03 Quality - Quality Measures Quality Measures: N/A - Blood Pressure Screening Does Patient Have Any of the Following: No Blood Pressure Classification: Pre-Hypertensive BP Reading Systolic Measurement: 133 Diastolic Measurement: 77 Screening for High Blood Pressure: < Pre-Hypertensive BP, F/U Documented > [ G8950] Pre-Hypertensive Follow-up Interventions: Referral to alternative/primary care provider.
[2017-09-10 13:50] LABS: URINE APPEARANCE CLEAR; URINE BILIRUBIN NEGATIVE (NEGATIVE); URINE BLOOD NEGATIVE (NEGATIVE); URINE COLOR YELLOW; URINE GLUCOSE (UA) NEGATIVE (NEGATIVE); URINE KETONE NEGATIVE (NEGATIVE); URINE LEUKOCYTE ESTERASE NEGATIVE (NEGATIVE); URINE NITRITE NEGATIVE (NEGATIVE); URINE PROTEIN NEGATIVE (NEGATIVE); URINE UROBILINOGEN 0.2 E.U./dL (0.20 - 1.00)
[2017-09-10 13:53] LABS: HCG,QUALITATIVE URINE NEGATIVE (NEGATIVE)
[2017-09-10] MEDS: AZITHROMYCIN 500 MG TABLET PO ONE (14:21)
[2017-09-12 09:39] LABS: GC SPECIMEN TYPE Cervix
== END 2017-09-10 14:25 | disposition home or self-care (01) ==
LOC: ER 12:32
DX: N76.0 Acute vaginitis (principal); F17.210 Nicotine dependence, cigarettes, uncomplicated
CPT/HCPCS: 99284 ×2; 81003; 81025; Q0111; 87210